=== PATIENT | male | born 1980 | race Caucasian/White ===

== ENCOUNTER → 2017-09-25 | Emergency (ER) | payer OTHER ==
[~2017-09-25] VITALS: Ht 165.1 cm; Wt 74.4 kg
[~2017-09-25] MED LIST: ADVIL100 M1; PANADOL EXTRA500 MG
== END | disposition home or self-care (01) ==
LOC: ER 17:03
DX: L44.0 Pityriasis rubra pilaris (principal)

== ENCOUNTER 2018-06-05 | Emergency (ER) | payer OTHER ==
[~2018-06-05] VITALS: Ht 165.1 cm; Wt 78.0 kg
[2018-06-05] MEDS ORDERED: KETO10TA2 PO ×2 (04:30→04:32)
[2018-06-05] MEDS ORDERED: MECLIZINE HCL25 MG PO ×2 (04:31→04:32)
== END 2018-06-05 14:07 | disposition home or self-care (01) ==
LOC: ER
DX: R42 Dizziness and giddiness (principal); M94.0 Chondrocostal junction syndrome [Tietze]; R07.89 Other chest pain; R61 Generalized hyperhidrosis

== ENCOUNTER 2018-09-17 21:20 | Emergency (ER) | payer OTHER ==
[~2018-09-17] VITALS: Ht 165.1 cm; Wt 76.7 kg
[~2018-09-17 21:20] MED LIST changes: +KETO10TA2 PO; +MECLIZINE HCL25 MG PO
[2018-09-18] MEDS ORDERED: INTESTINEX680 M1 PO ×2 (11:17→11:45)
[2018-09-18] MEDS ORDERED: DICY20TA PO ×2 (11:17→11:45)
== END 2018-09-18 14:41 | disposition home or self-care (01) ==
LOC: ER 21:20
DX: K52.9 Noninfective gastroenteritis and colitis, unspecified (principal)

== ENCOUNTER 2018-10-09 23:52 | Emergency (ER) | payer OTHER ==
[~2018-10-09] VITALS: Ht 165.1 cm; Wt 76.2 kg
[~2018-10-09 23:52] MED LIST changes: +DICY20TA PO; +INTESTINEX680 M1 PO
[2018-10-10] MEDS ORDERED: ZYNCOF 20-400120 ML PO (02:29)
[2018-10-10] MEDS ORDERED: ZYRTEC10 MG PO (02:29)
[2018-10-10] MEDS ORDERED: DOLOGESIC-DF 51 EACH PO (02:29)
== END 2018-10-10 02:39 | disposition home or self-care (01) ==
LOC: ER 23:52
DX: B34.9 Viral infection, unspecified (principal); R50.9 Fever, unspecified

== ENCOUNTER 2019-02-16 22:22 | Emergency (ER) | payer OTHER ==
[~2019-02-16] VITALS: Ht 165.1 cm; Wt 76.7 kg
[~2019-02-16 22:22] MED LIST changes: +DOLOGESIC-DF 51 EACH PO; +ZYNCOF 20-400120 ML PO; +ZYRTEC10 MG PO
[2019-02-17] MEDS ORDERED: ZOFRAN8 MG PO (06:50)
[2019-02-17] MEDS ORDERED: PEPCID40 MG PO (06:50)
[2019-02-17] MEDS ORDERED: CIPRO500 MG PO (06:50)
== END 2019-02-17 07:04 | disposition home or self-care (01) ==
LOC: ER 22:22
DX: K52.9 Noninfective gastroenteritis and colitis, unspecified (principal)

== ENCOUNTER 2019-04-16 22:54 | Emergency (ER) | payer OTHER ==
[~2019-04-16] VITALS: Ht 165.1 cm; Wt 76.2 kg
[~2019-04-16 22:54] MED LIST changes: +CIPRO500 MG PO; +PEPCID40 MG PO; +ZOFRAN8 MG PO
[2019-04-17] MEDS ORDERED: DOLOGESIC 500-1 EACH PO (01:38)
[2019-04-17] MEDS ORDERED: ZYNCOF 20-400120 ML PO (01:38)
== END 2019-04-17 01:54 ==
LOC: ER 22:54
DX: B34.9 Viral infection, unspecified (principal)

== ENCOUNTER → 2019-09-08 | Emergency (ER) | payer OTHER ==
[~2019-09-08] VITALS: Ht 165.1 cm; Wt 72.1 kg
[~2019-09-08] MED LIST changes: +DOLOGESIC 500-1 EACH PO; +NORFLEX100MG PO
== END | disposition home or self-care (01) ==
LOC: ER 08:58
DX: M75.101 Unspecified rotator cuff tear or rupture of right shoulder, not specified as traumatic (principal); M25.511 Pain in right shoulder

== ENCOUNTER → 2020-08-08 | Emergency (ER) | payer OTHER ==
[~2020-08-08] VITALS: Ht 165.1 cm; Wt 76.7 kg
[~2020-08-08] MED LIST changes: +ACETAMINOPHEN500 M1 PO; +FORTAMET500 MG; +ZOCOR20 MG PO
== END | disposition home or self-care (01) ==
LOC: ER 19:02
DX: B34.9 Viral infection, unspecified (principal); J02.9 Acute pharyngitis, unspecified; Z03.818 Encounter for observation for suspected exposure to other biological agents ruled out

== ENCOUNTER 2025-03-24 02:42 | Emergency (ER) | payer OTHER ==
[~2025-03-24] VITALS: Ht 165.1 cm; Wt 78.0 kg
[2025-03-24] MEDS ORDERED: LOSARTAN POTASS50 MG (02:50)
[2025-03-24] MEDS ORDERED: HYDROCODONE/CHLORPHEN P-STIREX 5 ML ML PO STA (05:19)
[2025-03-24] MEDS ORDERED: CEFTRIAXONE SODIUM 1,000 MG VIAL IM STA (05:19)
== END 2025-03-24 05:57 | disposition home or self-care (01) ==
LOC: ER 02:42
DX: J06.9 Acute upper respiratory infection, unspecified (principal); J01.90 Acute sinusitis, unspecified